=== PATIENT | male | born 1950 | race Caucasian/White ===

== ENCOUNTER → 2017-12-02 13:01 | Outpatient (CLI) | payer MEDICARE, OTHER, SELFPAY ==
[2017-12-02 14:11] LABS: Absolute Lymphocyte Count 2.02 X10^3/ul (0.83-4.51); Absolute Neutrophil Count 4.7 X10^3/uL (2.0-7.7); Basophil# 0.03 X10^3/uL; Basophil% 0.4 % (0-1); Eosinophil# 0.21 X10^3/uL; Eosinophils% 2.7 % (0-5); Hematocrit 43.7 % (40-54); Hemoglobin 14.2 g/dl (13.0-16.5); Lymphocyte # 2.02 X10^3/ul (4.0); Lymphocyte % 26.2 % (19-41); Mean Corp Hgb Conc 32.5 g/gl (32-36); Mean Corpuscular Hgb 29.6 pg (27.0-32.0); Mean Platelet Vol. 9.1 fl (6.2-12.0); Monocyte# 0.76 X10^3/uL; Monocyte% 9.9 % (0-10); Neutrophil # 4.66 X10^3/uL (2.7-7.7); Neutrophil % 60.5 % (47-70); Platelet Count 281 K/mm3 (150-450); RBC Distribution Width CV 15.8 % (11.6-14.6); RBC Distribution Width SD 52.2 fl (35.1-43.9); White Blood Count 7.7 K/mm3 (4.4-11.0)
[2017-12-02 14:13] LABS: POSITIVE COUNT NO; POSITIVE DIFFERENTIAL NO; POSITIVE MORPHOLOGY NO
[2017-12-02 14:26] LABS: ALB/GLOB Ratio 0.9 RATIO (0.9-2.4); AST(SGOT) 19 U/L (15-37); Alanine Aminotransfer ALT/SGPT 20 U/L (16-61); Albumin, Serum 3.7 g/dL (3.2-5.0); Alkaline Phosphatase 76 U/L (45-117); Anion Gap 8 (5-15); BUN 17 mg/dL (7-18); BUN/Creat Ratio 18.2 RATIO (10-20); Calcium,Total 8.7 mg/dL (8.5-10.1); Chloride 103 mmol/L (98-107); Creatinine, Serum 0.94 mg/dL (0.70-1.30); EST Glomerular Filtration Rate 85 mL/min (>60); Est Glom Filt Rate - Afr Amer 103 mL/min (>60); Globulin 3.9 g/dL (2.2-4.2); Glucose 90 mg/dL (74-106); Potassium 4.3 mmol/L (3.5-5.1); Protein, Total 7.6 g/dL (6.4-8.2); Sodium Level 137 mmol/L (136-145)
== END ==
PROVIDERS: Family Provider Family Medicine; PCP Family Medicine; Visit Provider Internal Medicine Rheumatology
DX: M06.4 Inflammatory polyarthropathy (principal); Z79.899 Other long term (current) drug therapy
CPT/HCPCS: 36415; 80053; 85025

== ENCOUNTER → 2018-02-17 11:28 | Outpatient (CLI) | payer MEDICARE, OTHER, SELFPAY ==
--- NOTE | 2018-02-17 11:32 | RAD_ITS ---
STUDY: X-RAY CHEST REASON FOR EXAM: Male, 67 years old. Productive cough 1 week TECHNIQUE: PA and lateral views of the chest. COMPARISON: None. FINDINGS: There is a well-circumscribed nodular density within the right upper lobe measuring 4.9 mm. There is minimal biapical scarring. There is no demonstrated pleural abnormality. Normal size heart. Normal mediastinum and simran. Normal visualized pulmonary arteries. Normal visualized aortic arch and descending thoracic aorta. There are diffuse degenerative changes of the visualized thoracic spine. Normal visualized ribs, clavicles, and shoulders. There is no demonstrated abnormality of the visualized soft tissue structures of the upper abdomen. RAD/Chest PA and Lateral IMPRESSION: Rounded 4.9 mm focal nodular density right upper lobe likely represent sequelae of granulomatous disease. In comparison to prior study to be helpful to establish stability or consider noncontrast chest CT. No visualized focal consolidation. Electronically Signed: Juliana Cohcran MD at 20:57 EDT Tel , Service support ,
== END ==
PROVIDERS: Family Provider Family Medicine; PCP Family Medicine; Visit Provider Family Medicine
DX: R05 Cough (principal)
CPT/HCPCS: 71046

== ENCOUNTER → 2018-02-24 10:41 | Outpatient (CLI) | payer MEDICARE, OTHER, SELFPAY ==
[2018-02-24 12:07] LABS: Absolute Lymphocyte Count 2.47 X10^3/ul (0.83-4.51); Absolute Neutrophil Count 5.4 X10^3/uL (2.0-7.7); Basophil# 0.05 X10^3/uL; Basophil% 0.5 % (0-1); Eosinophil# 0.28 X10^3/uL; Eosinophils% 2.9 % (0-5); Hematocrit 41.4 % (40-54); Hemoglobin 13.3 g/dl (13.0-16.5); Lymphocyte # 2.47 X10^3/ul (4.0); Lymphocyte % 25.9 % (19-41); Mean Corp Hgb Conc 32.1 g/gl (32-36); Mean Corpuscular Volume 93.2 fL (80-94); Mean Platelet Vol. 8.9 fl (6.2-12.0); Monocyte# 1.34 X10^3/uL; Monocyte% 14.1 % (0-10); Neutrophil # 5.37 X10^3/uL (2.7-7.7); Neutrophil % 56.4 % (47-70); POSITIVE COUNT NO; POSITIVE DIFFERENTIAL NO; POSITIVE MORPHOLOGY NO; Platelet Count 308 K/mm3 (150-450); RBC Distribution Width CV 16.1 % (11.6-14.6); RBC Distribution Width SD 54.1 fl (35.1-43.9); Red Blood Count 4.44 M/mm3 (4.6-6.2); White Blood Count 9.5 K/mm3 (4.4-11.0)
[2018-02-24 12:23] LABS: ALB/GLOB Ratio 0.9 RATIO (0.9-2.4); AST(SGOT) 20 U/L (15-37); Alanine Aminotransfer ALT/SGPT 20 U/L (16-61); Albumin, Serum 3.4 g/dL (3.2-5.0); Alkaline Phosphatase 67 U/L (45-117); Anion Gap 7 (5-15); BUN 14 mg/dL (7-18); BUN/Creat Ratio 14.5 RATIO (10-20); Calcium,Total 8.2 mg/dL (8.5-10.1); Chloride 104 mmol/L (98-107); Creatinine, Serum 0.96 mg/dL (0.70-1.30); EST Glomerular Filtration Rate 82 mL/min (>60); Est Glom Filt Rate - Afr Amer 99 mL/min (>60); Globulin 3.9 g/dL (2.2-4.2); Glucose 102 mg/dL (74-106); Potassium 4.3 mmol/L (3.5-5.1); Protein, Total 7.3 g/dL (6.4-8.2); Sodium Level 141 mmol/L (136-145)
== END ==
PROVIDERS: Family Provider Family Medicine; PCP Family Medicine; Visit Provider Internal Medicine Rheumatology
DX: M06.4 Inflammatory polyarthropathy (principal); Z79.899 Other long term (current) drug therapy
CPT/HCPCS: 36415; 80053; 85025

== ENCOUNTER → 2018-05-22 13:37 | Outpatient (CLI) | payer MEDICARE, OTHER, SELFPAY ==
[2018-05-22 15:55] LABS: Absolute Lymphocyte Count 1.76 X10^3/ul (0.83-4.51); Absolute Neutrophil Count 4.8 X10^3/uL (2.0-7.7); Basophil# 0.04 X10^3/uL; Basophil% 0.5 % (0-1); Eosinophil# 0.24 X10^3/uL; Hemoglobin 14.2 g/dl (13.0-16.5); Lymphocyte # 1.76 X10^3/ul (4.0); Lymphocyte % 22.1 % (19-41); Mean Corp Hgb Conc 32.3 g/gl (32-36); Mean Corpuscular Hgb 29.7 pg (27.0-32.0); Mean Corpuscular Volume 92.1 fL (80-94); Mean Platelet Vol. 9.1 fl (6.2-12.0); Monocyte# 1.11 X10^3/uL; Monocyte% 13.9 % (0-10); Neutrophil % 60.4 % (47-70); Platelet Count 321 K/mm3 (150-450); RBC Distribution Width CV 15.9 % (11.6-14.6); Red Blood Count 4.78 M/mm3 (4.6-6.2)
[2018-05-22 16:03] LABS: POSITIVE COUNT NO; POSITIVE DIFFERENTIAL NO; POSITIVE MORPHOLOGY NO
[2018-05-22 16:28] LABS: ALB/GLOB Ratio 0.8 RATIO (0.9-2.4); AST(SGOT) 16 U/L (15-37); Alanine Aminotransfer ALT/SGPT 20 U/L (16-61); Albumin, Serum 3.4 g/dL (3.2-5.0); Alkaline Phosphatase 85 U/L (45-117); Anion Gap 6 (5-15); BUN 16 mg/dL (7-18); Calcium,Total 8.9 mg/dL (8.5-10.1); Chloride 102 mmol/L (98-107); EST Glomerular Filtration Rate 79 mL/min (>60); Est Glom Filt Rate - Afr Amer 95 mL/min (>60); Globulin 4.5 g/dL (2.2-4.2); Glucose 102 mg/dL (74-106); Protein, Total 7.9 g/dL (6.4-8.2); Sodium Level 138 mmol/L (136-145)
== END ==
PROVIDERS: Family Provider Family Medicine; PCP Family Medicine; Referring Provider Internal Medicine Rheumatology; Visit Provider Internal Medicine Rheumatology
DX: M06.4 Inflammatory polyarthropathy (principal); Z79.899 Other long term (current) drug therapy
CPT/HCPCS: 36415; 80053; 85025

== ENCOUNTER → 2018-08-25 09:53 | Outpatient (CLI) | payer MEDICARE, OTHER, SELFPAY ==
[2018-08-25 12:35] LABS: Absolute Lymphocyte Count 1.79 X10^3/ul (0.83-4.51); Absolute Neutrophil Count 3.8 X10^3/uL (2.0-7.7); Basophil# 0.03 X10^3/uL; Basophil% 0.4 % (0-1); Eosinophils% 4.4 % (0-5); Hematocrit 43.2 % (40-54); Lymphocyte # 1.79 X10^3/ul (4.0); Lymphocyte % 26.1 % (19-41); Mean Corp Hgb Conc 32.4 g/gl (32-36); Mean Corpuscular Hgb 29.6 pg (27.0-32.0); Mean Corpuscular Volume 91.3 fL (80-94); Mean Platelet Vol. 8.8 fl (6.2-12.0); Monocyte# 0.95 X10^3/uL; Monocyte% 13.8 % (0-10); Neutrophil # 3.78 X10^3/uL (2.7-7.7); Neutrophil % 55.2 % (47-70); Platelet Count 302 K/mm3 (150-450); RBC Distribution Width SD 55.9 fl (35.1-43.9); Red Blood Count 4.73 M/mm3 (4.6-6.2); White Blood Count 6.9 K/mm3 (4.4-11.0)
[2018-08-25 12:37] LABS: Differential Indicated SCAN CRITERIA MET; POSITIVE COUNT NO; POSITIVE DIFFERENTIAL NO; POSITIVE MORPHOLOGY YES
[2018-08-25 12:38] LABS: ALB/GLOB Ratio 0.9 RATIO (0.9-2.4); AST(SGOT) 21 U/L (15-37); Alanine Aminotransfer ALT/SGPT 22 U/L (16-61); Albumin, Serum 3.7 g/dL (3.2-5.0); Alkaline Phosphatase 70 U/L (45-117); Anion Gap 6 (5-15); BUN 15 mg/dL (7-18); BUN/Creat Ratio 16.2 RATIO (10-20); Calcium,Total 8.9 mg/dL (8.5-10.1); Chloride 100 mmol/L (98-107); Creatinine, Serum 0.93 mg/dL (0.70-1.30); EST Glomerular Filtration Rate 86 mL/min (>60); Est Glom Filt Rate - Afr Amer 104 mL/min (>60); Globulin 4.3 g/dL (2.2-4.2); Glucose 85 mg/dL (74-106); Potassium 4.6 mmol/L (3.5-5.1); Sodium Level 138 mmol/L (136-145)
== END ==
PROVIDERS: Family Provider Family Medicine; PCP Family Medicine; Referring Provider Internal Medicine Rheumatology; Visit Provider Internal Medicine Rheumatology
DX: M06.4 Inflammatory polyarthropathy (principal); Z79.899 Other long term (current) drug therapy
CPT/HCPCS: 36415; 80053; 85025

== ENCOUNTER → 2018-11-19 14:57 | Outpatient (CLI) | payer MEDICARE, OTHER, SELFPAY ==
[2018-11-19 17:27] LABS: Absolute Lymphocyte Count 1.88 X10^3/ul (0.83-4.51); Basophil# 0.04 X10^3/uL; Basophil% 0.5 % (0-1); Eosinophils% 2.5 % (0-5); Hematocrit 41.7 % (40-54); Lymphocyte # 1.88 X10^3/ul (4.0); Lymphocyte % 23.5 % (19-41); Mean Corp Hgb Conc 33.6 g/gl (32-36); Mean Corpuscular Hgb 30.4 pg (27.0-32.0); Mean Corpuscular Volume 90.7 fL (80-94); Mean Platelet Vol. 9.1 fl (6.2-12.0); Monocyte% 11.2 % (0-10); Neutrophil # 4.96 X10^3/uL (2.7-7.7); Neutrophil % 61.9 % (47-70); Platelet Count 319 K/mm3 (150-450); RBC Distribution Width CV 16.3 % (11.6-14.6); RBC Distribution Width SD 52.6 fl (35.1-43.9)
[2018-11-19 17:32] LABS: POSITIVE COUNT NO; POSITIVE DIFFERENTIAL NO; POSITIVE MORPHOLOGY NO
[2018-11-19 17:43] LABS: ALB/GLOB Ratio 0.9 RATIO (0.9-2.4); AST(SGOT) 19 U/L (15-37); Alanine Aminotransfer ALT/SGPT 24 U/L (16-61); Albumin, Serum 3.5 g/dL (3.2-5.0); Alkaline Phosphatase 78 U/L (45-117); Anion Gap 7 (5-15); BUN 21 mg/dL (7-18); BUN/Creat Ratio 19.1 RATIO (10-20); Calcium,Total 8.6 mg/dL (8.5-10.1); Chloride 107 mmol/L (98-107); EST Glomerular Filtration Rate 70 mL/min (>60); Est Glom Filt Rate - Afr Amer 85 mL/min (>60); Globulin 4.1 g/dL (2.2-4.2); Glucose 103 mg/dL (74-106); Potassium 4.1 mmol/L (3.5-5.1); Protein, Total 7.6 g/dL (6.4-8.2); Sodium Level 141 mmol/L (136-145)
== END ==
PROVIDERS: Family Provider Family Medicine; PCP Family Medicine; Referring Provider Internal Medicine Rheumatology; Visit Provider Internal Medicine Rheumatology
DX: M06.4 Inflammatory polyarthropathy (principal); Z79.899 Other long term (current) drug therapy
CPT/HCPCS: 36415; 80053; 85025

== ENCOUNTER → 2019-02-18 | Outpatient (CLI) | payer MEDICARE, OTHER, SELFPAY ==
[2019-02-18 15:45] LABS: ALB/GLOB Ratio 0.8 RATIO (0.9-2.4); AST(SGOT) 19 U/L (15-37); Absolute Neutrophil Count 7.1 X10^3/uL (2.0-7.7); Alanine Aminotransfer ALT/SGPT 21 U/L (16-61); Albumin, Serum 3.4 g/dL (3.2-5.0); Alkaline Phosphatase 82 U/L (45-117); Anion Gap 6 (5-15); BUN 23 mg/dL (7-18); BUN/Creat Ratio 22.5 RATIO (10-20); Basophil# 0.03 X10^3/uL; Basophil% 0.3 % (0-1); Calcium,Total 8.5 mg/dL (8.5-10.1); Chloride 106 mmol/L (98-107); Creatinine, Serum 1.02 mg/dL (0.70-1.30); EST Glomerular Filtration Rate 77 mL/min (>60); Eosinophil# 0.29 X10^3/uL; Eosinophils% 2.7 % (0-5); Est Glom Filt Rate - Afr Amer 93 mL/min (>60); Glucose 101 mg/dL (74-106); Hematocrit 40.6 % (40-54); Hemoglobin 13.5 g/dl (13.0-16.5); Lymphocyte % 16.9 % (19-41); Mean Corp Hgb Conc 33.3 g/gl (32-36); Mean Corpuscular Hgb 30.7 pg (27.0-32.0); Mean Corpuscular Volume 92.3 fL (80-94); Mean Platelet Vol. 9.1 fl (6.2-12.0); Monocyte# 1.38 X10^3/uL; Neutrophil # 7.11 X10^3/uL (2.7-7.7); Neutrophil % 66.9 % (47-70); Platelet Count 273 K/mm3 (150-450); Potassium 4.6 mmol/L (3.5-5.1); Protein, Total 7.4 g/dL (6.4-8.2); RBC Distribution Width CV 16.1 % (11.6-14.6); RBC Distribution Width SD 53.5 fl (35.1-43.9); Sodium Level 139 mmol/L (136-145); White Blood Count 10.6 K/mm3 (4.4-11.0)
[2019-02-18 16:09] LABS: POSITIVE COUNT NO; POSITIVE DIFFERENTIAL NO; POSITIVE MORPHOLOGY NO
== END | disposition home or self-care (01) ==
LOC: MTLAB 14:19
PROVIDERS: Family Provider Family Medicine; PCP Family Medicine; Referring Provider Internal Medicine Rheumatology; Visit Provider Internal Medicine Rheumatology
DX: M06.4 Inflammatory polyarthropathy (principal); Z79.899 Other long term (current) drug therapy
CPT/HCPCS: 36415; 80053; 85025

== ENCOUNTER → 2019-05-17 11:31 | Outpatient (CLI) | payer MEDICARE, OTHER, SELFPAY ==
[2019-05-17 13:54] LABS: Absolute Lymphocyte Count 1.91 X10^3/uL (0.83-4.51); Absolute Neutrophil Count 3.7 X10^3/uL (2.0-7.7); Basophil# 0.06 X10^3/uL; Basophil% 0.9 % (0-1); Eosinophil# 0.21 X10^3/uL; Eosinophils% 3.2 % (0-5); Hematocrit 44.6 % (40-54); Hemoglobin 14.6 g/dL (13.0-16.5); Lymphocyte # 1.91 X10^3/ul (4.0); Mean Corp Hgb Conc 32.7 g/dL (32-36); Mean Corpuscular Volume 91.8 fL (80-94); Mean Platelet Vol. 8.7 fl (6.2-12.0); Monocyte# 0.72 X10^3/uL; Monocyte% 10.9 % (0-10); NRBC Flagged by Analyzer 0 % (0-5); Neutrophil # 3.67 X10^3/uL (2.7-7.7); Neutrophil % 55.7 % (47-70); Platelet Count 287 K/mm3 (150-450); RBC Distribution Width CV 16.2 % (11.6-14.6); RBC Distribution Width SD 53.8 fl (35.1-43.9); Red Blood Count 4.86 M/mm3 (4.6-6.2); White Blood Count 6.6 K/mm3 (4.4-11.0)
[2019-05-17 14:11] LABS: ALB/GLOB Ratio 0.9 RATIO (0.9-2.4); AST(SGOT) 21 U/L (15-37); Alanine Aminotransfer ALT/SGPT 20 U/L (16-61); Albumin, Serum 3.6 g/dL (3.2-5.0); Alkaline Phosphatase 74 U/L (45-117); Anion Gap 8 (5-15); BUN 15 mg/dL (7-18); BUN/Creat Ratio 16.1 RATIO (10-20); Calcium,Total 8.8 mg/dL (8.5-10.1); Chloride 102 mmol/L (98-107); Creatinine, Serum 0.93 mg/dL (0.70-1.30); EST Glomerular Filtration Rate 85 mL/min (>60); Est Glom Filt Rate - Afr Amer 103 mL/min (>60); Globulin 4.2 g/dL (2.2-4.2); Glucose 75 mg/dL (74-106); Potassium 4.5 mmol/L (3.5-5.1); Protein, Total 7.8 g/dL (6.4-8.2); Sodium Level 139 mmol/L (136-145)
== END ==
PROVIDERS: Family Provider Family Medicine; PCP Family Medicine; Referring Provider Internal Medicine Rheumatology; Visit Provider Internal Medicine Rheumatology
DX: M06.4 Inflammatory polyarthropathy (principal); Z79.899 Other long term (current) drug therapy
CPT/HCPCS: 36415; 80053; 85025

== ENCOUNTER → 2019-08-18 12:48 | Outpatient (CLI) | payer MEDICARE, OTHER, SELFPAY ==
[2019-08-18 14:23] LABS: Absolute Lymphocyte Count 2.12 X10^3/uL (0.83-4.51); Absolute Neutrophil Count 4.3 X10^3/uL (2.0-7.7); Basophil# 0.06 X10^3/uL; Basophil% 0.8 % (0-1); Eosinophil# 0.21 X10^3/uL; Eosinophils% 2.8 % (0-5); Hematocrit 44.3 % (40-54); Hemoglobin 14.5 g/dL (13.0-16.5); Lymphocyte # 2.12 X10^3/ul (4.0); Lymphocyte % 28.3 % (19-41); Mean Corp Hgb Conc 32.7 g/dL (32-36); Mean Corpuscular Hgb 30.5 pg (27.0-32.0); Mean Corpuscular Volume 93.1 fL (80-94); Mean Platelet Vol. 8.8 fl (6.2-12.0); Monocyte# 0.81 X10^3/uL; Monocyte% 10.8 % (0-10); NRBC Flagged by Analyzer 0 % (0-5); Neutrophil # 4.26 X10^3/uL (2.7-7.7); Neutrophil % 56.9 % (47-70); Platelet Count 338 K/mm3 (150-450); RBC Distribution Width CV 15.5 % (11.6-14.6); RBC Distribution Width SD 52.3 fl (35.1-43.9); Red Blood Count 4.76 M/mm3 (4.6-6.2); White Blood Count 7.5 K/mm3 (4.4-11.0)
[2019-08-18 14:38] LABS: ALB/GLOB Ratio 0.9 RATIO (0.9-2.4); AST(SGOT) 18 U/L (15-37); Alanine Aminotransfer ALT/SGPT 25 U/L (16-61); Albumin, Serum 3.7 g/dL (3.2-5.0); Alkaline Phosphatase 69 U/L (45-117); Anion Gap 3 (5-15); BUN 21 mg/dL (7-18); BUN/Creat Ratio 20.8 RATIO (10-20); Calcium,Total 8.6 mg/dL (8.5-10.1); Chloride 102 mmol/L (98-107); Creatinine, Serum 1.01 mg/dL (0.70-1.30); EST Glomerular Filtration Rate 77 mL/min (>60); Est Glom Filt Rate - Afr Amer 94 mL/min (>60); Globulin 4.2 g/dL (2.2-4.2); Glucose 95 mg/dL (74-106); Potassium 4.3 mmol/L (3.5-5.1); Protein, Total 7.9 g/dL (6.4-8.2); Sodium Level 137 mmol/L (136-145)
== END ==
PROVIDERS: Family Provider Family Medicine; PCP Family Medicine; Referring Provider Internal Medicine Rheumatology; Visit Provider Internal Medicine Rheumatology
DX: M06.4 Inflammatory polyarthropathy (principal); Z79.899 Other long term (current) drug therapy
CPT/HCPCS: 36415; 80053; 85025

== ENCOUNTER 2019-11-29 11:03 | Outpatient (RCR) | payer MEDICARE, OTHER, SELFPAY ==
[2019-11-29 11:59] LABS: Absolute Lymphocyte Count 1.94 X10^3/uL (0.83-4.51); Absolute Neutrophil Count 4.7 X10^3/uL (2.0-7.7); Basophil# 0.05 X10^3/uL; Basophil% 0.6 % (0-1); Eosinophil# 0.18 X10^3/uL; Eosinophils% 2.3 % (0-5); Hematocrit 42.3 % (40-54); Lymphocyte # 1.94 X10^3/ul (4.0); Lymphocyte % 25.2 % (19-41); Mean Corp Hgb Conc 33.1 g/dL (32-36); Mean Corpuscular Hgb 30.5 pg (27.0-32.0); Mean Corpuscular Volume 92.2 fL (80-94); Mean Platelet Vol. 8.6 fl (6.2-12.0); Monocyte# 0.84 X10^3/uL; Monocyte% 10.9 % (0-10); NRBC Flagged by Analyzer 0 % (0-5); Neutrophil # 4.65 X10^3/uL (2.7-7.7); Neutrophil % 60.4 % (47-70); Platelet Count 320 K/mm3 (150-450); RBC Distribution Width CV 16.6 % (11.6-14.6); RBC Distribution Width SD 55.6 fl (35.1-43.9); Red Blood Count 4.59 M/mm3 (4.6-6.2); White Blood Count 7.7 K/mm3 (4.4-11.0)
[2019-11-29 12:41] LABS: ALB/GLOB Ratio 0.9 RATIO (0.9-2.4); AST(SGOT) 23 U/L (15-37); Alanine Aminotransfer ALT/SGPT 19 U/L (16-61); Albumin, Serum 3.7 g/dL (3.2-5.0); Alkaline Phosphatase 68 U/L (45-117); Anion Gap 4 (5-15); BUN 16 mg/dL (7-18); BUN/Creat Ratio 16.8 RATIO (10-20); Calcium,Total 9.2 mg/dL (8.5-10.1); Chloride 105 mmol/L (98-107); Creatinine, Serum 0.95 mg/dL (0.70-1.30); EST Glomerular Filtration Rate 83 mL/min (>60); Est Glom Filt Rate - Afr Amer 100 mL/min (>60); Glucose 90 mg/dL (74-106); Potassium 4.5 mmol/L (3.5-5.1); Protein, Total 7.7 g/dL (6.4-8.2); Sodium Level 139 mmol/L (136-145)
== END 2019-12-09 18:00 | disposition home or self-care (01) ==
LOC: MTLAB 11:03
PROVIDERS: PCP Family Medicine; Referring Provider Internal Medicine Rheumatology; Visit Provider Internal Medicine Rheumatology
DX: M06.4 Inflammatory polyarthropathy (principal); Z79.899 Other long term (current) drug therapy
CPT/HCPCS: 36415; 80053; 85025

== ENCOUNTER 2020-02-24 13:47 | Outpatient (RCR) | payer MEDICARE, OTHER, SELFPAY ==
[2020-02-24 15:39] LABS: Absolute Lymphocyte Count 2.24 X10^3/uL (0.83-4.51); Absolute Neutrophil Count 6.9 X10^3/uL (2.0-7.7); Basophil# 0.07 X10^3/uL; Basophil% 0.7 % (0-1); Eosinophil# 0.21 X10^3/uL; Hematocrit 43.1 % (40-54); Hemoglobin 13.7 g/dL (13.0-16.5); Lymphocyte # 2.24 X10^3/ul (4.0); Lymphocyte % 21.1 % (19-41); Mean Corp Hgb Conc 31.8 g/dL (32-36); Mean Corpuscular Hgb 30.2 pg (27.0-32.0); Mean Corpuscular Volume 94.9 fL (80-94); Mean Platelet Vol. 9.2 fl (6.2-12.0); Monocyte# 1.15 X10^3/uL; Monocyte% 10.8 % (0-10); NRBC Flagged by Analyzer 0 % (0-5); Neutrophil # 6.88 X10^3/uL (2.7-7.7); Neutrophil % 64.9 % (47-70); Platelet Count 304 K/mm3 (150-450); RBC Distribution Width SD 54.7 fl (35.1-43.9); Red Blood Count 4.54 M/mm3 (4.6-6.2); White Blood Count 10.6 K/mm3 (4.4-11.0)
[2020-02-24 15:56] LABS: ALB/GLOB Ratio 0.9 RATIO (0.9-2.4); AST(SGOT) 17 U/L (15-37); Alanine Aminotransfer ALT/SGPT 20 U/L (16-61); Albumin, Serum 3.7 g/dL (3.2-5.0); Alkaline Phosphatase 76 U/L (45-117); Anion Gap 6 (5-15); BUN 13 mg/dL (7-18); BUN/Creat Ratio 14.3 RATIO (10-20); Calcium,Total 8.8 mg/dL (8.5-10.1); Chloride 104 mmol/L (98-107); Creatinine, Serum 0.91 mg/dL (0.70-1.30); EST Glomerular Filtration Rate 87 mL/min (>60); Est Glom Filt Rate - Afr Amer 106 mL/min (>60); Glucose 88 mg/dL (74-106); Potassium 4.2 mmol/L (3.5-5.1); Protein, Total 7.7 g/dL (6.4-8.2); Sodium Level 136 mmol/L (136-145)
== END 2020-02-24 18:00 | disposition home or self-care (01) ==
LOC: MTLAB 13:47
PROVIDERS: PCP Family Medicine; Referring Provider Internal Medicine Rheumatology; Visit Provider Internal Medicine Rheumatology
DX: M06.4 Inflammatory polyarthropathy (principal); Z79.899 Other long term (current) drug therapy
CPT/HCPCS: 36415; 80053; 85025

== ENCOUNTER → 2020-05-26 12:55 | Outpatient (CLI) | payer MEDICARE, OTHER, SELFPAY ==
[2020-05-26 15:02] LABS: Absolute Lymphocyte Count 1.91 X10^3/uL (0.83-4.51); Absolute Neutrophil Count 5.9 X10^3/uL (2.0-7.7); Basophil# 0.07 X10^3/uL; Basophil% 0.7 % (0-1); Eosinophil# 0.26 X10^3/uL; Eosinophils% 2.8 % (0-5); Hematocrit 43.7 % (40-54); Hemoglobin 13.8 g/dL (13.0-16.5); Lymphocyte # 1.91 X10^3/ul (4.0); Lymphocyte % 20.2 % (19-41); Mean Corp Hgb Conc 31.6 g/dL (32-36); Mean Corpuscular Hgb 29.3 pg (27.0-32.0); Mean Corpuscular Volume 92.8 fL (80-94); Monocyte# 1.25 X10^3/uL; Monocyte% 13.2 % (0-10); NRBC Flagged by Analyzer 0 % (0-5); Neutrophil # 5.89 X10^3/uL (2.7-7.7); Neutrophil % 62.5 % (47-70); Platelet Count 333 K/mm3 (150-450); RBC Distribution Width CV 15.6 % (11.6-14.6); RBC Distribution Width SD 52.3 fl (35.1-43.9); Red Blood Count 4.71 M/mm3 (4.6-6.2); White Blood Count 9.4 K/mm3 (4.4-11.0)
[2020-05-26 15:23] LABS: ALB/GLOB Ratio 0.8 RATIO (0.9-2.4); AST(SGOT) 13 U/L (15-37); Alanine Aminotransfer ALT/SGPT 22 U/L (16-61); Albumin, Serum 3.4 g/dL (3.2-5.0); Alkaline Phosphatase 79 U/L (45-117); Anion Gap 5 (5-15); BUN 17 mg/dL (7-18); BUN/Creat Ratio 16.7 RATIO (10-20); Calcium,Total 9.1 mg/dL (8.5-10.1); Chloride 102 mmol/L (98-107); Creatinine, Serum 1.02 mg/dL (0.70-1.30); EST Glomerular Filtration Rate 76 mL/min (>60); Est Glom Filt Rate - Afr Amer 92 mL/min (>60); Globulin 4.4 g/dL (2.2-4.2); Glucose 103 mg/dL (74-106); Potassium 4.1 mmol/L (3.5-5.1); Protein, Total 7.8 g/dL (6.4-8.2); Sodium Level 136 mmol/L (136-145)
== END ==
PROVIDERS: PCP Family Medicine; Referring Provider Internal Medicine Rheumatology; Visit Provider Internal Medicine Rheumatology
DX: M06.4 Inflammatory polyarthropathy (principal); Z79.899 Other long term (current) drug therapy
CPT/HCPCS: 36415; 80053; 85025

== ENCOUNTER → 2020-08-14 12:58 | Outpatient (CLI) | payer MEDICARE, OTHER, SELFPAY ==
[2020-08-14 15:38] LABS: Absolute Lymphocyte Count 1.54 X10^3/uL (0.83-4.51); Absolute Neutrophil Count 5.9 X10^3/uL (2.0-7.7); Basophil# 0.09 X10^3/uL; Eosinophil# 0.26 X10^3/uL; Eosinophils% 2.9 % (0-5); Hematocrit 39.5 % (40-54); Hemoglobin 13.1 g/dL (13.0-16.5); Lymphocyte # 1.54 X10^3/ul (4.0); Mean Corp Hgb Conc 33.2 g/dL (32-36); Mean Corpuscular Hgb 29.4 pg (27.0-32.0); Mean Corpuscular Volume 88.8 fL (80-94); Mean Platelet Vol. 8.4 fl (6.2-12.0); Monocyte# 1.21 X10^3/uL; Monocyte% 13.4 % (0-10); NRBC Flagged by Analyzer 0 % (0-5); Neutrophil # 5.88 X10^3/uL (2.7-7.7); Platelet Count 433 K/mm3 (150-450); RBC Distribution Width CV 17.2 % (11.6-14.6); RBC Distribution Width SD 49.7 fl (35.1-43.9); Red Blood Count 4.45 M/mm3 (4.6-6.2)
[2020-08-14 15:58] LABS: ALB/GLOB Ratio 0.6 RATIO (0.9-2.4); AST(SGOT) 15 U/L (15-37); Alanine Aminotransfer ALT/SGPT 21 U/L (16-61); Albumin, Serum 3.1 g/dL (3.2-5.0); Alkaline Phosphatase 74 U/L (45-117); Anion Gap 5 (5-15); BUN 17 mg/dL (7-18); BUN/Creat Ratio 17.8 RATIO (10-20); Calcium,Total 9.5 mg/dL (8.5-10.1); Chloride 102 mmol/L (98-107); Creatinine, Serum 0.96 mg/dL (0.70-1.30); EST Glomerular Filtration Rate 82 mL/min (>60); Est Glom Filt Rate - Afr Amer 100 mL/min (>60); Glucose 88 mg/dL (74-106); Potassium 4.3 mmol/L (3.5-5.1); Protein, Total 8.1 g/dL (6.4-8.2); Sodium Level 137 mmol/L (136-145)
== END ==
PROVIDERS: PCP Family Medicine; Referring Provider Internal Medicine Rheumatology; Visit Provider Internal Medicine Rheumatology
DX: M06.4 Inflammatory polyarthropathy (principal); Z79.899 Other long term (current) drug therapy
CPT/HCPCS: 36415; 80053; 85025

== ENCOUNTER → 2020-10-09 16:34 | Outpatient (CLI) | payer MEDICARE, OTHER, SELFPAY ==
--- NOTE | 2020-10-09 16:36 | CT_ITS ---
STUDY: CT CHEST WITH CONTRAST REASON FOR EXAM: Male, 70 years old. HEMOPTYSIS AND CHEST PAIN IN LONG TIME SMOKER RADIATION DOSAGE (If Supplied By Facility): CTDIvol = ( 11.25 ) mGy, DLP = ( 365.29 ) mGycm TECHNIQUE: Transaxial imaging was performed following intravenous administration of IV 100mL Isovue-370. Multiplanar coronal and sagittal images were reformatted. Individualized dose optimization techniques were used for this CT. COMPARISON: None. FINDINGS: Hyperinflation and emphysematous changes with multiple bullous changes seen in the upper lobes worse on the right side. There is a 2.6 cm x 4 cm x 3.6 cm mass in the posterior aspect of the right upper lobe. This causes destruction of the underlying rib. There is a 2 cm x 1.7 cm hypodense mass in the posterior medial aspect of the right upper lobe as seen on axial image #52 and coronal image #170. There is evidence of enlarged right hilar lymph nodes. There is also evidence of a 1.3 cm x 1 cm nodule in the right pericardial fat pad. There are calcifications of the coronary arteries. Enlarged mediastinal lymphadenopathy more prominent in the subcarinal region. This measures 4.2 cm x 1.8 cm. Normal enhanced pulmonary arteries. There is atherosclerotic calcification of the aortic arch with tortuosity and elongation of the aortic arch and descending thoracic aorta. There are multi-level degenerative changes of the thoracic spine. There is no demonstrated abnormality of the visualized upper abdomen. CT/Chest WITH Contrast IMPRESSION: 2.6 x 4 cm x 3.6 I mass in the posterior aspect of the right upper lobe with underlying rib destruction. Right pulmonary nodules as described. Right hilar lymphadenopathy as well as mediastinal lymphadenopathy. Emphysematous changes with bullous formation worse in the right lung apex as well as the posterior aspects of the lower lobes bilaterally. Electronically Signed: Hugo Dillard MD at 8:57 EST , Service support ,
[2020-10-09 16:45] LABS: CREATININE FINGERSTICK 1.4 mg/dL (0.70-1.30)
== END ==
PROVIDERS: PCP Family Medicine; Referring Provider Family Medicine; Visit Provider Family Medicine
DX: R04.2 Hemoptysis (principal); R07.9 Chest pain, unspecified
CPT/HCPCS: 71260; Q9967

== ENCOUNTER → 2020-10-24 08:07 | Outpatient (CLI) | payer MEDICARE, OTHER, SELFPAY ==
[2020-10-24 08:29] VITALS: PULSE 104; PULSE 106; PULSE 107; PULSE 109; PULSE 98; O2SAT 90; O2SAT 91; O2SAT 92; O2SAT 94
--- NOTE | 2020-10-24 10:03 | WT_ITS ---
PSN 6 Minute Walk Test - 6 Minute Walk Test 6 Minute Walk Test: 6 Minute Walk Test PSN:6-Minute Walk Test Start: 10/24/20 08:29 Freq: Status: Active Protocol: RESP.6MINW Document 10/24/20 08:29 [facility] (Rec: 10/24/20 08:33 [facility] [id number]) 6 Minute Walk Test Date Performed 10/24/20 Time Performed 08:15 Height 5 ft 3 in Weight: 59.874 kg Weight in Pounds 132.[address]: Dr Dunbar Assistive device used: None Pre-test Oxygen Delivery Method Room Air Pulse Ox (%) 94 Pulse Rate (60-100 beats/min) 98 Dyspnea Mattie Scale (0-10) 0 Exertion Mattie Scale (6-20) 6 1st minute Oxygen Delivery Method Room Air Pulse Ox (%) 92 Pulse Rate (60-100 beats/min) 104 H 2nd minute Oxygen Delivery Method Room Air Pulse Ox (%) 90 Pulse Rate (60-100 beats/min) 107 H 3rd minute Oxygen Delivery Method Room Air Pulse Ox (%) 90 Pulse Rate (60-100 beats/min) 106 H 4th minute Oxygen Delivery Method Room Air Pulse Ox (%) 90 Pulse Rate (60-100 beats/min) 107 H 5th minute Oxygen Delivery Method Room Air Pulse Ox (%) 90 Pulse Rate (60-100 beats/min) 109 H 6th minute Oxygen Delivery Method Room Air Pulse Ox (%) 91 Pulse Rate (60-100 beats/min) 109 H Dyspnea Mattie Scale (0-10) 2 Exertion Mattie Scale (6-20) 11 Post-test Oxygen Delivery Method Room Air Pulse Ox (%) 94 Pulse Rate (60-100 beats/min) 98 Full Laps Walked 17 Partial Lap, Number of Tiles Walked 11 Total Distance Walked (ft) 1014 - Interpretation Interpretation: The patient was able to ambulate 1014 feet over the course of 6 minutes on room air with no assistive devices or breaks. The patient did experience significant desaturation as low as 90% during ambulation. Patient did have an element of reflexive tachycardia with a peak heart rate of 109 bpm. These findings are consistent with a respiratory limitation exercise tolerance. - Recommendations Recommendations: No supplemental oxygen is indicated at this time. However, patient will need to be followed closely given level of desaturation.
== END ==
PROVIDERS: PCP Family Medicine; Referring Provider Internal Medicine Critical Care Medicine; Visit Provider Internal Medicine Critical Care Medicine
DX: R06.00 Dyspnea, unspecified (principal)
CPT/HCPCS: 94618

== ENCOUNTER → 2020-10-27 08:06 | Outpatient (CLI) | payer MEDICARE, OTHER, SELFPAY ==
[2020-10-19 12:09] LABS: Absolute Lymphocyte Count 1.44 X10^3/uL (0.83-4.51); Basophil# 0.08 X10^3/uL; Basophil% 0.8 % (0-1); Eosinophil# 0.39 X10^3/uL; Eosinophils% 3.9 % (0-5); Hematocrit 43.4 % (40-54); Hemoglobin 13.4 g/dL (13.0-16.5); Lymphocyte # 1.44 X10^3/ul (4.0); Lymphocyte % 14.3 % (19-41); Mean Corp Hgb Conc 30.9 g/dL (32-36); Mean Corpuscular Hgb 27.8 pg (27.0-32.0); Mean Platelet Vol. 8.9 fl (6.2-12.0); Monocyte# 1.15 X10^3/uL; Monocyte% 11.4 % (0-10); NRBC Flagged by Analyzer 0 % (0-5); Neutrophil # 7.01 X10^3/uL (2.7-7.7); Neutrophil % 69.3 % (47-70); Platelet Count 348 K/mm3 (150-450); RBC Distribution Width CV 17.6 % (11.6-14.6); RBC Distribution Width SD 57.6 fl (35.1-43.9); Red Blood Count 4.82 M/mm3 (4.6-6.2); White Blood Count 10.1 K/mm3 (4.4-11.0)
[2020-10-19 12:18] LABS: International Normalized Ratio 0.9; Prothrombin Time (Protime)PT. 12.1 SECONDS (11.7-14.9)
[2020-10-19 12:19] LABS: Partial Thromboplast Time 26.8 Seconds (24.1-36.2)
[2020-10-19 12:29] LABS: ALB/GLOB Ratio 0.8 RATIO (0.9-2.4); AST(SGOT) 18 U/L (15-37); Alanine Aminotransfer ALT/SGPT 21 U/L (16-61); Albumin, Serum 3.6 g/dL (3.2-5.0); Alkaline Phosphatase 87 U/L (45-117); Anion Gap 4 (5-15); BUN 25 mg/dL (7-18); BUN/Creat Ratio 22.9 RATIO (10-20); Calcium,Total 9.5 mg/dL (8.5-10.1); Chloride 102 mmol/L (98-107); Creatinine, Serum 1.09 mg/dL (0.70-1.30); EST Glomerular Filtration Rate 71 mL/min (>60); Est Glom Filt Rate - Afr Amer 85 mL/min (>60); Globulin 4.6 g/dL (2.2-4.2); Glucose 95 mg/dL (74-106); Potassium 4.7 mmol/L (3.5-5.1); Protein, Total 8.2 g/dL (6.4-8.2); Sodium Level 136 mmol/L (136-145)
[2020-10-27] VITALS (11 sets, daily range): BP systolic 90–146; BP diastolic 38–90; PULSE 72–84; RESP 14–28; TEMP 36.3; O2SAT 92–100; BMI 23.3
--- NOTE | 2020-10-27 | ASPIGT_PTH ---
PATIENT: JENA DUMONT LOC: PSN U#:[id number] AGE/SX: 75/M ROOM: RE10/27/[address]: Dr. Bharathi Dunbar MD : 1950 BED: DIS: SPEC #: [id number] RECD: 10/27/20 11:02 STATUS: YANI MARIA ELENA #: [id number] KARLENE: 10/27/20 00:[address]: Bharathi Dunbar DEPT: SURGICAL PATHOLOGY RECD BY: Latonia Card ENTERED: 10/27/20 11:02 SP TYPE: ASP RAD OTHR DR: MD Dr. Trace Bird MD Tissues: Lung, NOS Procedures: FNA Specimen Adequacy Special Stain Group II Surgery Specimen Level IV Imprint (control) HEADER OPERATION: CT-guided right lung biopsy PRE-OP DIAGNOSIS: Right lung mass TISSUE SUBMITTED: Right lung mass MICROSCOPIC DIAGNOSIS Right lung mass, CT-guided needle core biopsy: Squamous cell carcinoma. See comment. AM:oli 10/30/2020 COMMENT The specimen is evaluated at the time of biopsy by Dr. Chacon. Immediate Evaluation = Positive for malignant cells, non-small cell carcinoma. Immunohistochemistry ([id number]) supports the above diagnosis. Case has been reviewed in consultation with Dr. Howard who concurs with the above diagnosis. IDC:SJ MICROSCOPIC DESCRIPTION Slides are reviewed. GROSS DESCRIPTION Received in fixative is one container labeled with the patient's name and designated right lung. The specimen consists of multiple irregular and elongated fragments of rollins tissue that in aggregate measure 0.8 x 0.2 x <0.1 cm. The specimen is totally submitted in one cassette. / AM:oli 10/27/20 TC:0 [facility]: [id number] ADDENDUM ADDENDUM ADDENDUM ADDENDUM ADDENDUM ADDENDUM 11/24/2020 10:12 ADDENDUM 11/24/2020 10:12 ADDENDUM 11/24/2020 10:12 ADDENDUM 11/24/2020 10:12 ADDENDUM 11/24/2020 10:12 PD-L1 (KEYTRUDA) IMMUNOHISTOCHEMICAL ANALYSIS FROM [facility] RESULTS: Tumor proportion score: <1% / Negative Please see complete report in e-chart or EMR
--- NOTE | 2020-10-27 | IMM_PTH ---
PATIENT: JENA DUMONT LOC: [facility] U#:[id number] AGE/SX: 75/M ROOM: RE10/27/[address]: Dr. Bharathi Dunbar MD : 1950 BED: DIS: SPEC #: [id number] RECD: 10/30/20 14:24 STATUS: YANI REContreras #: [id number] KARLENE: 10/27/20 00:[address]: Bharathi Dunbar DEPT: IMMUNOHISTOCHEMISTRY RECD BY: Janna Luong ENTERED: 10/30/20 14:26 SP TYPE: IMMUNO OTHR DR: MD Dr. Trace Bird MD Tissues: Lung, NOS Procedures: Synapto (add) NAPSIN A (add) CD56 (add) CHROMO (add) CK14 (add) CK20 (add) CK5-6 (add) CK7 (add) CK8 (add) LYONS-2 (add) P53 (add) TTF1 (add) Pankeratin (initial) P40 (add) NSE (add) PHYSICIAN & [address] [address] SPECIMEN INFORMATION: Tissue Source: Right lung mass Clinical Info: Right lung mass Specimen Number: [id number] CPT code: 92718, 34967 x14 METHODOLOGY: Deparaffinized sections of prefer/formalin-fixed tissue or PAP/DQ stained slides are incubated with monoclonal/polyclonal antibodies/oligonucleotide probes. Localization is made via biotin free immunoperoxidase method. Appropriate controls are performed and reacted as expected. Results on target cell population are indicated in the following table: RESULTS: ANTIBODY / CLONE RESULT AE1-3 (AE1/AE3/PCK26) positive CK7 (OV-TL12/30) negative CK8 (65lfjwP87) positive CK20 (KS20.8) negative LYONS-2 (SP21) negative CD56 (123C3.D5) negative Chromo (LK2H10) negative Synapto (polyclonal) negative NSE Neuron Specific Enolase positive, rare TTF-1 (8G7G3/1) negative Napsin A (Rabbit Polyclonal) negative CK5-6 (D5 & 1684) positive CK14 (LL002) positive P40 (BC28) positive P53 (DO-7) positive, 75% These tests were developed and their performance characteristics determined by [facility]. They may not have been cleared or approved by the U.S. Food and Drug Administration. The FDA has determined that such clearance or approval is not necessary. The above immunohistochemical/dualISH markers are ordered and reviewed by the Pathologist. INTERPRETATION: Right lung mass , CT-guided core biopsy: Squamous cell carcinoma. AM:oli 10/31/2020
--- NOTE | 2020-10-27 08:08 | CT_ITS ---
PROCEDURE: CT GUIDED CORE NEEDLE BIOPSY OF A posterior right upper lobe LUNG LESION INDICATION: Male, 70 years old. Right lung mass PHYSICIAN: Dr. BERHANE Gibson CONSENT: Written informed consent was obtained having explained the risks, benefits and alternatives in detail with the patient who accepted the risks and agreed to proceed. Laboratory review and clinical assessment was performed. CONSCIOUS SEDATION PROTOCOL: The Drugs used were: 2 mg Versed, IV., and 50 mcg Fentanyl, IV. The sedation time was: 21 minutes. Conscious sedation was started at 10:12 AM and terminated at 1033. The conscious sedation protocol was independently monitored. RADIATION DOSAGE (If Supplied By Facility): CTDIvol = ( 25 ) mGy, DLP = ( 194.1 ) mGycm Individualized dose optimization techniques were used for this CT. TECHNIQUE: The patient was placed in the prone position. A noncontrast CT was performed to localize the lesion in the posterior right upper lobe . The skin surface was prepped and draped in a sterile fashion. 1% lidocaine was used for local anesthesia. Using CT guidance, a 18-gauge coaxial biopsy device was advanced to the periphery of the lesion. A total of 4 core specimens were obtained. The specimens were placed in a formalin solution. A post procedure CT demonstrated no adverse sequelae or pneumothorax. The patient tolerated the procedure well without adverse event. A negative biopsy does not exclude malignancy. Further imaging or clinical followup based on patient condition and degree of clinical suspicion for malignancy. Suggest rebiopsy, if biopsy results do not match with clinical scenario. CT/Biopsy/Inj or Needle Placement IMPRESSION: 1. CT directed core needle biopsy of the posterior right upper lobe lung nodule using CT image guidance with image documentation as described. Pathology results are pending. 2. Conscious Sedation protocol utilized with independent monitoring. Electronically Signed: Hugo Dillard MD at 10:48 EDT , Service support ,
[2020-10-27] MEDS: Midazolam 2 MG/2 ML Syringe IV (10:12)
[2020-10-27] MEDS: fentaNYL 100 MCG/2 ML Ampul IV (10:14)
--- NOTE | 2020-10-27 10:15 | RAD_ITS ---
STUDY: X-RAY CHEST REASON FOR EXAM: Male, 70 years old. pneumothorax -- immediately post lung biopsy TECHNIQUE: Single AP portable view of the chest. COMPARISON: 02/17/2018 FINDINGS: 3 cm opacity in the upper right lung consistent with the mass in the posterior right upper lobe the lungs seen on recent CT. No pneumothorax. Normal size heart. Normal mediastinum and simran. Normal visualized pulmonary arteries. Normal visualized aortic arch and descending thoracic aorta. Normal visualized thoracic spine. Normal visualized ribs, clavicles, and shoulders. There is no demonstrated abnormality of the visualized soft tissue structures of the upper abdomen. RAD/Chest Insp/Exp 2 View IMPRESSION: No pneumothorax after CT-guided lung biopsy. Electronically Signed: Nicolás Norris MD at 11:30 EDT Tel , Service support ,
--- NOTE | 2020-10-27 12:15 | RAD_ITS ---
STUDY: X-RAY CHEST REASON FOR EXAM: Male, 70 years old. Pneumothorax -- 2 hours post lung biopsy TECHNIQUE: AP inspiration and expiration views. COMPARISON: Comparison is made with prior study done earlier in the day. FINDINGS: EKG electrodes are seen. No evidence of pneumothorax on the delayed radiographs. RAD/Chest Insp/Exp 2 View IMPRESSION: No evidence of pneumothorax. Electronically Signed: Hugo Dillard MD at 12:52 EDT , Service support ,
--- NOTE | 2020-10-27 13:40 | PFTCOMP ---
COMPLETE PULMONARY FUNCTION TEST INTERPRETATION Brief HPI: Patient is a 70 year old male, currently under the care of myself, who presents to [facility] for complete pulmonary function tests secondary to diagnosis of lung mass. Respiratory therapist reports good effort and reproducible results. Interpretation: Forced expiration spirometry shows a severe large airways obstructive ventilatory defect with an FEV1 of 44% predicted. There is a significant bronchodilator response in FVC by strict ATS criteria. Spirograms are of good quality and plateau slowly, indicating slowly emptying areas of the lungs. The respiratory flow volume loop shows decreased expiratory flow rates at all lung volumes consistent with airway obstruction. Lung volumes by body plethysmography show a normal total lung capacity at 4.87 L, 101% predicted. FRC and RV are elevated out of proportion. Lung volume measurements are consistent with air-trapping. Diffusion capacity by carbon monoxide is decreased at 59% predicted. The airway resistance is elevated. No previous pulmonary function tests were available for review. Impression: Partially reversible severe large airways obstructive ventilatory defect with a symmetric reduction diffusing capacity
== END ==
PROVIDERS: PCP Family Medicine; Referring Provider Internal Medicine Critical Care Medicine; Visit Provider Internal Medicine Critical Care Medicine
DX: C34.11 Malignant neoplasm of upper lobe, right bronchus or lung (principal); M06.9 Rheumatoid arthritis, unspecified; Z79.899 Other long term (current) drug therapy; F17.290 Nicotine dependence, other tobacco product, uncomplicated; R04.2 Hemoptysis
CPT/HCPCS: 32408; 36415; 71046; 77012; 80053; 85025; 85610; 85730; 88172; 88305; 88313; 88341; 88342; 94060; 94726; 94729; 99155; 99156; J7040; A4216

== ENCOUNTER → 2020-11-07 14:56 | Outpatient (CLI) | payer MEDICARE, OTHER, SELFPAY ==
[2020-11-01 09:13] VITALS: BMI 22.4
--- NOTE | 2020-11-07 15:30 | PET_ITS ---
EXAMINATION: FDG PET/CT INDICATIONS: A 70-year-old male with history of primary lung carcinoma presenting for initial staging examination. COMPARISON EXAMINATION: CT of the chest report dated 10/09/20 INDEX LESION SIZE SUV INTERPRETATION Right upper lung-right upper lobe 6.9-cm (largest) (frame 168) 22.5 (max) Fulfills quantitative criteria for viable neoplasm Mediastinal structures right thoracic perihilum 45.7-mm (largest) (frame 148) 29.2 (max) Fulfills quantitative criteria for viable neoplasm Left posterior cervical triangle, right anterior neck, additional nodular soft tissue densities 39.4-mm (largest) (frame 192) 22.9 (max) Fulfills quantitative criteria for viable neoplasm Abdominal retroperitoneum and mesentery 29.2-mm (largest) (frame 64) 21.8 (max) Fulfills quantitative criteria for viable neoplasm TECHNIQUE: Following the intravenous administration of 13.14 mCi of F-18 deoxyglucose via the left antecubital fossa, multiplanar image acquisitions of the neck, chest, abdomen and pelvis to level of mid thigh, obtained at one hour post radiopharmaceutical administration contemporaneously interpreted with the current CT of the neck, chest, abdomen and pelvis to level of mid thigh, dated 11/07/[address] of the chest report dated 10/09/20 reveal: SERUM GLUCOSE LEVEL: 98 mg/dl. FINDINGS: 1. An increase in glucose metabolism is defined in two separate nodular presentations in the right upper posterior lung field-right upper lobe extending to the pleural interface, in additional to a smaller nodular focus in the right apical lung field and chest wall to include the fourth-sixth ribs, sixth thoracic vertebra. The calculated maximal standard uptake value is 22.5. The maximal axial diameter of the metabolic, morphologic abnormality on review of CT of the chest dated 11/07/20 is 6.9-cm (transverse). 2. Multiple foci of increased FDG concentration extend from the superior to subcarinal mediastinum and right thoracic perihilum rendering a calculated maximal standard uptake value of 29.2. The maximal axial diameter of the largest corresponding metabolic, morphologic abnormality on review of CT of the chest dated 11/07/20 is 45.7-mm (transverse). 3. An increase in radiopharmaceutical concentration is noted in the left posterior cervical triangle, right anterior neck involving level , right upper extremity involving the periosseous soft tissues, left lateral abdominal wall, periscapular soft tissue. The calculated maximal standard uptake value is 22.9. The maximal axial diameter of the largest individual metabolic, morphologic abnormality on review of CT of the chest dated 11/07/20 is 39.4-mm (transverse). 4. Several distinct nodular foci of increased labeled glucose metabolism are manifest in the abdominal-pelvic retroperitoneum and mesentery corresponding to soft tissue mass formation, right upper anterior abdomen in the right hepatophrenic region, generating a calculated maximal standard uptake value of 21.8. The maximal axial diameter of the largest individual metabolic, morphologic abnormality on review of CT of the abdomen and pelvis dated 11/07/20 is 29.2-mm (transverse). 5. Normal physiologic distribution of the radiopharmaceutical is apparent in the hepatic (2.5) and splenic parenchyma, both renal units, bladder and visualized intestinal tract. The visualized portion of the cerebral cortical-subcortical structures demonstrate symmetric and preserved glucose metabolism. Diffuse radiopharmaceutical concentration is noted in all four quadrants of the abdomen and pelvis. Pertinent CT findings are as follows: CHEST: There is atherosclerotic calcification defined in the thoracic aorta without evidence of dilatation-aneurysm formation. Coronary arterial calcification is observed. There are no additional parenchymal densities-nodules defined in the right and left hemithorax with discernible increased FDG concentration. Emphysematous changes are noted in the bilateral upper-lower lung zones. Bilateral axillary soft tissue densities with fatty hilus are ametabolic. ABDOMEN AND PELVIS: There is atherosclerotic calcification defined in the abdominal aorta without evidence of dilatation-aneurysm formation. Pelvic arterial calcification is observed. Bilateral fat containing inguinal hernias are observed. Colonic diverticulosis is encountered without evidence of diverticulitis. Bilateral subcentimeter inguinal soft tissue densities are ametabolic. Calcification is observed in the left renal unit. SKELETAL: Degenerative changes are noted in the cervical, thoracic and lumbar spine without evidence of increased radiopharmaceutical concentration. PET/PET/CT Tumor Base -Thigh Init IMPRESSION: 1. ABNORMAL EXAMINATION INDICATIVE OF MALIGNANT VIABLE NEOPLASM. 2. Increased glucose concentration observed in the right upper lung-right upper lobe in two separate locations to include mass and nodularity fulfill quantitative criteria for viable neoplasm. 3. Mediastinal and right thoracic perihilar enhanced FDG uptake fulfills quantitative criteria for viable metastatic involvement. 4. Increased tracer concentration observed in the left posterior cervical triangle, right anterior neck, the right cervical paravertebral soft tissues, the left lateral abdominal wall, right hepatophrenic and periscapular soft tissues fulfill quantitative criteria for viable neoplasm. 5. Viable metastatic disease is manifest in the abdominal-pelvic retroperitoneum and mesentery corresponding to soft tissue nodularity. Electronic Signature Nicolás Figueroa D.O. Accurate Quantification of SUVs for this report are calculated using the [employer].??Exclusive [place] Patent [employer]? Technology ([place].S. Patent No. [phone]). Electronically Signed: Nicolás Figueroa DO at 23:29 EDT Tel , Service support ,
== END ==
PROVIDERS: PCP Family Medicine; Referring Provider Internal Medicine Critical Care Medicine; Visit Provider Internal Medicine Critical Care Medicine
DX: C34.31 Malignant neoplasm of lower lobe, right bronchus or lung (principal)
CPT/HCPCS: 78815; A9552

== ENCOUNTER → 2020-11-15 10:52 | Outpatient (CLI) | payer MEDICARE, OTHER, SELFPAY ==
[2020-11-01 09:13] VITALS: BMI 22.4
--- NOTE | 2020-11-15 10:45 | RAD_ITS ---
STUDY: X-RAY - ORBITS REASON FOR EXAM: Male, 70 years old. Pre MRI clearance, hx of metal in eye TECHNIQUE: 2 view(s) of the orbits were obtained. COMPARISON: None. FINDINGS: Normal bilateral orbits without a metallic orbital foreign body. Normal visualized facial bones. Normal paranasal sinuses. The soft tissue structures are unremarkable. RAD/Orbits for Foreign Body IMPRESSION: No demonstrated metallic orbital foreign body. The patient is cleared for an MRI examination. Electronically Signed: Andrew Newton MD at 11:47 EDT , Service support ,
--- NOTE | 2020-11-15 10:54 | MRI_ITS ---
STUDY: MRI BRAIN WITH AND WITHOUT CONTRAST REASON FOR EXAM: Male, 70 years old. Staging, new diagnosis non small cell lung ca TECHNIQUE: Standardized multiplanar fat and water weighted pulse sequences were obtained. IV Dotarem 12ml was administered for the contrast portion of the examination. COMPARISON: None. FINDINGS: There is mild cerebral atrophy with widening of the extra-axial spaces and ventricular dilatation. There are a limited number of small white matter hyperintensities, distributed throughout the deep white matter tracts of the cerebral hemispheres, consistent with mild chronic white matter ischemic changes. There is no evidence for recent intracranial ischemia or other cause of cytotoxic edema on diffusion weighted imaging (DWI). Normal bilateral basal ganglia. Normal thalami. There is no extra-axial fluid accumulation. Normal flow voids within the major intracranial circulation suggesting patency by spin echo criteria. Normal venous enhancement. There is no enhancing intra-axial or extra-axial abnormality. Normal sella turcica, pituitary gland, infundibular stalk, optic chiasm and hypothalamus. Normal tectal plate and pineal gland. Normal midbrain, sofia and medulla. Normal cerebellum. Normal basal cisterns. Normal bilateral temporal bones. Normal bilateral internal auditory canals. No demonstrated orbital abnormality, within the constraints of a routine brain study. Mucosal thickening right maxillary sinus. Normal calvarium and skull base. Normal visualized soft tissue structures. Normal visualized upper cervical spine. MRI/Brain W/WO Contrast IMPRESSION: Normal unenhanced and enhanced MRI of the brain. Electronically Signed: Vijay Floyd MD at 17:49 EDT , Service support ,
== END ==
PROVIDERS: PCP Family Medicine; Referring Provider Internal Medicine Critical Care Medicine; Visit Provider Internal Medicine Critical Care Medicine
DX: C34.31 Malignant neoplasm of lower lobe, right bronchus or lung (principal)
CPT/HCPCS: 70030; 70553; A9575

== ENCOUNTER → 2021-01-17 08:25 | Outpatient (CLI) | payer MEDICARE, OTHER, SELFPAY ==
[2020-11-01 09:13] VITALS: BMI 22.4
[2021-01-17 08:45] VITALS: BP 110/56; PULSE 105; RESP 16; TEMP 36.1; O2SAT 98; BMI 20.3
[2021-01-17] MEDS: 0.9% NaCl Peripheral Flush Adult/Peds IV (08:50)
[2021-01-17 09:30] VITALS: BP 97/59; PULSE 86; RESP 16; TEMP 36.3; O2SAT 96
[2021-01-17 10:30] VITALS: BP 108/60; PULSE 77; RESP 16; TEMP 36.4; O2SAT 95
[2021-01-17 11:02] VITALS: BP 131/67; PULSE 74; RESP 16; TEMP 36.6; O2SAT 100
== END ==
PROVIDERS: PCP Family Medicine; Referring Provider Internal Medicine Hematology & Oncology; Visit Provider Internal Medicine Hematology & Oncology
DX: D64.9 Anemia, unspecified (principal)
CPT/HCPCS: 36430; 86850; 86900; 86901; 86920; 86922; J7040; J7050; P9016; A4216

== ENCOUNTER → 2021-02-06 13:28 | Outpatient (CLI) | payer MEDICARE, OTHER, SELFPAY ==
[2021-02-01 12:33] VITALS: BMI 20.2
[2021-02-06] MEDS: 0.9% NaCl Peripheral Flush Adult/Peds IV (13:37)
[2021-02-06 13:46] VITALS: BP 78/48; PULSE 93; RESP 16; TEMP 36.4; O2SAT 94; BMI 20.3
[2021-02-06 14:18] VITALS: BP 79/49; PULSE 89; RESP 16; TEMP 36.7
[2021-02-06 15:18] VITALS: BP 105/60; PULSE 76; RESP 16; TEMP 36.9
[2021-02-06 15:52] VITALS: BP 99/55; PULSE 77; RESP 16; TEMP 36.8; O2SAT 100
== END ==
PROVIDERS: PCP Family Medicine; Referring Provider Internal Medicine Hematology & Oncology; Visit Provider Internal Medicine Hematology & Oncology
DX: D64.9 Anemia, unspecified (principal)
CPT/HCPCS: 36430; 86850; 86900; 86901; 86920; 86922; J7040; J7050; P9016; A4216

== ENCOUNTER → 2021-03-20 08:54 | Outpatient (CLI) | payer MEDICARE, OTHER, SELFPAY ==
[2021-02-06 13:46] VITALS: BMI 20.3
[2021-03-20] VITALS (8 sets, daily range): BP systolic 91–113; BP diastolic 39–68; PULSE 71–81; RESP 16; TEMP 36.6–37.2; O2SAT 98–100; BMI 21.0
[2021-03-20] MEDS: 0.9% NaCl Peripheral Flush Adult/Peds IV (09:14)
== END ==
PROVIDERS: PCP Family Medicine; Referring Provider Internal Medicine Hematology & Oncology; Visit Provider Internal Medicine Hematology & Oncology
DX: D64.9 Anemia, unspecified (principal)
CPT/HCPCS: 36415; 36430; 86644; 86850; 86900; 86901; 86920; 86922; J7040; P9016; A4216

== ENCOUNTER 2021-08-22 12:15 | Outpatient (CLI) | payer MEDICARE, OTHER, SELFPAY ==
--- NOTE | 2021-08-22 12:19 | RAD_ITS ---
EXAM: XR CHEST, 2 VIEWS : 1950 CLINICAL INDICATION: shortness of breath TECHNIQUE: Frontal and lateral views of the chest. This report was created using [employer] report generation technology. COMPARISON: 10/27/20 and 10/09/20 FINDINGS: LUNGS AND PLEURAL SPACES: Worsening right upper lobe opacity with posterior rib destruction consistent with previously identified pulmonary mass. No pneumothorax. No effusion. HEART: Unremarkable. Cardiac silhouette not enlarged. MEDIASTINUM: Central airways and mediastinal contour are unremarkable. BONES/JOINTS: Degenerative changes of the spine. SOFT TISSUES: Unremarkable. RAD/Chest PA and Lateral IMPRESSION: Worsening right upper lobe opacity with posterior rib destruction consistent with previously identified pulmonary mass. at 0040 Reported and signed by: Chidi Duke MD Electronically Signed: Chidi Duke MD at 0:39 EST Tel , Service support ,
== END 2021-08-22 23:59 | disposition short-term general hospital (02) ==
PROVIDERS: PCP Family Medicine; Referring Provider Nurse Practitioner Acute Care; Visit Provider Nurse Practitioner Acute Care
DX: J44.9 Chronic obstructive pulmonary disease, unspecified (principal)
CPT/HCPCS: 71046